=== PATIENT | male | born 1995 | race Caucasian/White ===

== ENCOUNTER 2023-03-16 01:10 | Emergency (ER) | payer BC ==
[2023-03-16 02:21] LABS: Absolute Lymphocytes (CBC) 3.9 K/uL (0.7-4.9); Hematocrit 46.9 % (39.6-49.0); Lymphocytes % 53.3 % (15.3-44.8); MCV 89.6 fL (80-100); MPV 8.3 fL (7.6-11.3); RBC Red Blood Cell Count 5.24 M/uL (4.33-5.43)
[2023-03-16 02:50] LABS: Albumin 4.1 g/dL (3.4-5.0); Bilirubin Direct 0.2 mg/dL (0-0.2); Bilirubin Indirect, Calculated 1.2 mg/dL (0.2-0.8); Bilirubin Total 1.4 mg/dL (0.2-1.0); Magnesium 2.1 mg/dL (1.6-2.4); Potassium 4.2 mEq/L (3.5-5.1); Protein, Total 7.7 g/dL (6.4-8.2); Troponin High Sensitivity 5.9 pg/mL (<58.9)
[2023-03-16] MEDS ORDERED: PANTOPRAZOLE 40 MG INJ ONE (02:50)
--- NOTE | 2023-03-16 03:58 | EDPHYS ---
Physician Documentation [facility] Name: Boby Means Age: 27 yrs Sex: Male : 1995 Arrival Date: 03/16/2023 Time: 01:10 Bed 15 Private MD: ED Physician Arslan Phelan HPI: 03/16 02:38 This 27 yrs old Male presents to ER via Ambulatory with complaints of Chest Pressure, snw Dizziness. 02:38 The patient or guardian reports chest pain that is located primarily in the anterior snw chest wall, left. The pain radiates to. Associated signs and symptoms: Pertinent positives: diaphoresis, dizziness, nausea, Pertinent negatives: shortness of breath. The chest pain is described as a pressure. Duration: The patient or guardian reports multiple episodes, that have now resolved. Modifying factors: The symptoms are alleviated by nothing. the symptoms are aggravated by emotionally stressful situations. Severity of pain: At its worst the pain was moderate. The patient has not experienced similar symptoms in the past, but family has similar symptoms. The patient has not recently seen a physician. +ETOH 2 days ago and then [address] home the next day. Historical: - Allergies: 01:32 PENICILLINS; ll3 - Home Meds: 01:32 Albuterol Inhl [Active]; ll3 - PMHx: 01:32 Asthma; ll3 - PSHx: 01:32 None; ll3 - Immunization history:: Client reports receiving the 2nd dose of the Covid vaccine. - Social history:: Smoking status: Patient reports the use of cigarette tobacco products, denies chronic smoking, but will smoke occasionally, Reported history of juuling and/or vaping. ROS: 02:36 Constitutional: Negative for fever, chills, and weight loss, Eyes: Negative for injury, snw pain, redness, and discharge, ENT: Negative for injury, pain, and discharge, Neck: Negative for injury, pain, and swelling. 02:36 Respiratory: Negative for shortness of breath, cough, wheezing, and pleuritic chest pain. 02:36 Back: Negative for injury and pain, : Negative for injury, bleeding, discharge, and swelling, MS/Extremity: Negative for injury and deformity, Skin: Negative for injury, rash, and discoloration, Neuro: Negative for headache, weakness, numbness, tingling, and seizure, Psych: Negative for depression, anxiety, suicide ideation, homicidal ideation, and hallucinations. 02:36 Cardiovascular: Positive for chest pain, of the anterior aspect of left shoulder and anterior aspect of left upper chest, +nausea, diaphoresis, no SOB. 02:36 Abdomen/GI: Positive for nausea. Exam: 02:36 Head/Face: Normocephalic, atraumatic. Eyes: Pupils equal round and reactive to light, snw extra-ocular motions intact. Lids and lashes normal. Conjunctiva and sclera are non-icteric and not injected. Cornea within normal limits. Periorbital areas with no swelling, redness, or edema. ENT: Nares patent. No nasal discharge, no septal abnormalities noted. Tympanic membranes are normal and external auditory canals are clear. Oropharynx with no redness, swelling, or masses, exudates, or evidence of obstruction, uvula midline. Mucous membranes moist. Neck: Trachea midline, no thyromegaly or masses palpated, and no cervical lymphadenopathy. Supple, full range of motion without nuchal rigidity, or vertebral point tenderness. No Meningismus. Chest/axilla: Normal chest wall appearance and motion. Nontender with no deformity. No lesions are appreciated. Cardiovascular: Regular rate and rhythm with a normal S1 and S2. No gallops, murmurs, or rubs. Normal PMI, no JVD. No pulse deficits. Respiratory: Lungs have equal breath sounds bilaterally, clear to auscultation and percussion. No rales, rhonchi or wheezes noted. No increased work of breathing, no retractions or nasal flaring. Abdomen/GI: Soft, non-tender, with normal bowel sounds. No distension or tympany. No guarding or rebound. No evidence of tenderness throughout. Back: No spinal tenderness. No costovertebral tenderness. Full range of motion. Skin: Warm, dry with normal turgor. Normal color with no rashes, no lesions, and no evidence of cellulitis. MS/ Extremity: Pulses equal, no cyanosis. Neurovascular intact. Full, normal range of motion. Neuro: Awake and alert, GCS 15, oriented to person, place, time, and situation. Cranial nerves II-XII grossly intact. Motor strength 5/5 in all extremities. Sensory grossly intact. Cerebellar exam normal. Normal gait. Psych: Awake, alert, with orientation to person, place and time. Behavior, mood, and affect are within normal limits. 02:36 Constitutional: The patient appears alert, awake, athletic Vital Signs: 01:28 BP 153 / 89; Pulse 46; Resp 16; Temp 98.2(O); Pulse Ox 100% on R/A; Weight 95.25 kg ll3 (R); Height 6 ft. 2 in. (R); Pain 0/10; 02:17 BP 145 / 95; Pulse 47; Resp 12; Temp 98.6; Pulse Ox 98% on R/A; rv1 03:30 BP 150 / 96; Pulse 47; Resp 13; Pulse Ox 97% ; vc1 01:28 Body Mass Index 26.96 (95.25 kg, 187.96 cm) ll3 01:28 Pain Scale: Adult ll3 MDM: 02:17 Patient medically screened. snw 04:01 Differential diagnosis: abnormal EKG, acute pericarditis, anxiety, chest wall pain, snw esophagitis, gastritis, pneumonia. SAAD Risk Score: TOTAL SCORE = 0. Data reviewed: vital signs, nurses notes. I considered the following discharge prescriptions or medication management in the emergency department Medications were administered in the Emergency Department. See MAR. Counseling: I had a detailed discussion with the patient and/or guardian regarding: the historical points, exam findings, and any diagnostic results supporting the discharge/admit diagnosis, the presence of at least one elevated blood pressure reading (>120/80) during this emergency department visit, lab results, radiology results, the need for outpatient follow up, for definitive care, a family practitioner, to return to the emergency department if symptoms worsen or persist or if there are any questions or concerns that arise at home. Response to treatment: the patient's symptoms have markedly improved after treatment. Special discussion: Based on the history and exam findings, there is no indication for further emergent testing or inpatient evaluation. I discussed with the patient/guardian the need to see the primary care provider for further evaluation of the symptoms. 03/16 02:07 Order name: Basic Metabolic Panel; Complete Time: 02:54 snw 03/16 02:07 Order name: CBC with Diff; Complete Time: 02:33 snw 03/16 02:07 Order name: LFT's; Complete Time: 02:54 snw 03/16 02:07 Order name: Magnesium; Complete Time: 02:54 snw 03/16 02:07 Order name: NT PRO-BNP; Complete Time: 02:54 snw 03/16 02:07 Order name: Troponin HS; Complete Time: 02:54 snw 03/16 02:35 Order name: Add On-Lab snw 03/16 02:35 Order name: Add On-Lab snw 03/16 02:38 Order name: Lipid Profile; Complete Time: 02:54 EDMS 03/16 02:38 Order name: Lipase; Complete Time: 02:54 EDMS 03/16 01:38 Order name: Chest Single View XRAY ll3 03/16 02:07 Order name: EKG; Complete Time: 02:08 snw 03/16 01:40 Order name: EKG - Nurse/Tech; Complete Time: 01:40 ll3 03/16 02:07 Order name: Cardiac monitoring; Complete Time: 02:15 snw 03/16 02:07 Order name: EKG - Nurse/Tech; Complete Time: 02:15 snw 03/16 02:07 Order name: IV Saline Lock; Complete Time: 02:15 snw 03/16 02:07 Order name: Labs collected and sent; Complete Time: 02:15 snw 03/16 02:07 Order name: O2 Per Protocol; Complete Time: 02:15 snw 03/16 02:07 Order name: O2 Sat Monitoring; Complete Time: 02:15 snw Administered Medications: 02:46 Drug: Pantoprazole IVP 40 mg Route: IVP; Site: left antecubital; vc1 04:08 Follow up: Response: No adverse reaction; Marked relief of symptoms vc1 Disposition: 20:37 Co-signature as Attending Physician, Arslan Phelan MD I agree with the assessment sp4 and plan of care. I reviewed the patient's care provided by the Advanced Practice Provider and agree with the diagnosis and treatment plan. Disposition Summary: 03/16/23 03:57 Discharge Ordered Location: Home snw Condition: Stable snw Diagnosis - Chest pain, unspecified snw - Elevated Triglycerides snw - Other gastritis without bleeding snw Followup: snw - With: Emergency Department - When: As needed - Reason: Worsening of condition Followup: snw - With: Private Physician - When: 2 - 3 days - Reason: Recheck today's complaints, Continuance of care, Re-evaluation by your physician Discharge Instructions: - Discharge Summary Sheet snw - Nonspecific Chest Pain, Adult snw - Gastritis, Adult snw - How to Take Your Blood Pressure, [id number] snw - Form - Blood Pressure Record Sheet snw - High Triglycerides Eating Plan snw Forms: - Work release form snw - Medication Reconciliation Form snw - Thank You Letter snw - Antibiotic Education snw - Prescription Opioid Use snw - [email or web address] snw Prescriptions: - Pepcid 20 mg Oral Tablet - take 1 tablet by ORAL route once daily; 20 tablet; Refills: 0, Product snw Selection Permitted Signatures: Dispatcher [employer] EDMS Gypsy Gant FNP-C DIRECT MARKETING MANAGER-Csnw Diane Bedoya, RN RN ll3 Shy Machado RN RN vc1 Arslan Phelan MD MD sp4 Corrections: (The following items were deleted from the chart) 02:36 02:08 Chest Single View+RAD.RAD.[email or web address] ordered. EDMS EDMS 02:40 02:38 +ETOH 2 days ago and then [address] home[address] snw snw
--- NOTE | 2023-03-16 03:58 | ER ---
Nurse's Notes [facility] Name: Boby Means Age: 27 yrs Sex: Male : 1995 Arrival Date: 03/16/2023 Time: 01:10 Bed 15 Private MD: Diagnosis: Chest pain, unspecified;Elevated Triglycerides;Other gastritis without bleeding Presentation: 03/16 01:28 Chief complaint: Patient states: C/o chest pain and dizziness since 2330, states pain ll3 is 0/10, states its more of an uncomfortable feeling. Coronavirus screen: Vaccine status: Patient reports receiving the 2nd dose of the covid vaccine. At this time, the client does not indicate any symptoms associated with coronavirus-19. Ebola Screen: No symptoms or risks identified at this time. Initial Sepsis Screen: Does the patient meet any 2 criteria? No. Patient's initial sepsis screen is negative. Does the patient have a suspected source of infection? No. Patient's initial sepsis screen is negative. Risk Assessment: Do you want to hurt yourself or someone else? Patient reports no desire to harm self or others. Onset of symptoms was March 15, 2023 at 23:30. 01:28 Method Of Arrival: Ambulatory ll3 01:28 Acuity: ESTEPHANIA 2 ll3 Triage Assessment: 01:32 General: Appears uncomfortable, Behavior is calm, cooperative. Pain: Complains of pain ll3 in anterior aspect of left upper chest Pain radiates to anterior aspect of left shoulder Pain currently is 0 out of 10 on a pain scale. Pain began 2 hours ago. Is continuous. Cardiovascular: Reports chest pain, lightheadedness, Chest pain is described as vague, is located in left anterior chest wall radiates to left arm(s) neck began 2 hours prior to arrival episodes are continuous. Respiratory: Respiratory effort is even, unlabored, Respiratory pattern is regular, symmetrical. Derm: Skin is pink, warm \T\ dry. Historical: - Allergies: :32 PENICILLINS; ll3 - Home Meds: :32 Albuterol Inhl [Active]; ll3 - PMHx: 01:32 Asthma; ll3 - PSHx: 01:32 None; ll3 - Immunization history:: Client reports receiving the 2nd dose of the Covid vaccine. - Social history:: Smoking status: Patient reports the use of cigarette tobacco products, denies chronic smoking, but will smoke occasionally, Reported history of juuling and/or vaping. Screenin:00 Abuse screen: Denies threats or abuse. Nutritional screening: No deficits noted. vc1 Tuberculosis screening: No symptoms or risk factors identified. 02:00 [facility] ED Fall Risk Assessment (Adult) History of falling in the last 3 months, vc1 including since admission No falls in past 3 months (0 pts) Confusion or Disorientation No (0 pts) Intoxicated or Sedated No (0 pts) Impaired Gait No (0 pts) Mobility Assist Device Used No (0 pt) Altered Elimination No (0 pt) Score/Fall Risk Level 0 - 2 = Low Risk Oriented to surroundings, Maintained a safe environment, Educated pt \T\ family on fall prevention, incl call for assistance when getting out of bed. Assessment: 04:07 Reassessment: Patient and/or family updated on plan of care and expected duration. Pain vc1 level reassessed. Patient is alert, oriented x 3, equal unlabored respirations, skin warm/dry/pink. Patient denies pain at this time. Patient states feeling better. Patient states symptoms have improved. Vital Signs: 01:28 BP 153 / 89; Pulse 46; Resp 16; Temp 98.2(O); Pulse Ox 100% on R/A; Weight 95.25 kg ll3 (R); Height 6 ft. 2 in. (R); Pain 0/10; 02:17 BP 145 / 95; Pulse 47; Resp 12; Temp 98.6; Pulse Ox 98% on R/A; rv1 03:30 BP 150 / 96; Pulse 47; Resp 13; Pulse Ox 97% ; vc1 01:28 Body Mass Index 26.96 (95.25 kg, 187.96 cm) ll3 01:28 Pain Scale: Adult ll3 ED Course: 01:13 Patient arrived in ED. ja2 01:32 Triage completed. ll3 01:32 Arm band placed on Patient placed in waiting room, Patient notified of wait time. EKG ll3 completed in triage. Results shown to MD. 01:35 Patient has correct armband on for positive identification. Bed in low position. Call vc1 light in reach. Client placed on continuous cardiac and pulse oximetry monitoring. NIBP monitoring applied. 02:07 Gypsy Gant FNP-C is PHCP. snw 02:07 Arslan Phelan MD is Attending Physician. snw 02:15 Shy Machado, RN is Primary Nurse. vc1 02:17 Inserted saline lock: 20 gauge in left antecubital area, using aseptic technique. Blood rv1 collected. 02:17 Basic Metabolic Panel Sent. rv1 02:17 CBC with Diff Sent. rv1 02:17 Magnesium Sent. rv1 02:17 LFT's Sent. rv1 02:17 NT PRO-BNP Sent. rv1 02:17 Troponin HS Sent. rv1 02:34 Basic Metabolic Panel Sent. rv1 02:34 LFT's Sent. rv1 02:34 Magnesium Sent. rv1 02:34 NT PRO-BNP Sent. rv1 02:34 Troponin HS Sent. rv1 02:38 Chest Single View XRAY In Process Unspecified. EDMS 04:07 No provider procedures requiring assistance completed. Patient maintains SpO2 vc1 saturation greater than 95% on room air. 04:28 IV discontinued, intact, bleeding controlled, No redness/swelling at site. Pressure vc1 dressing applied. Administered Medications: 02:46 Drug: Pantoprazole IVP 40 mg Route: IVP; Site: left antecubital; vc1 04:08 Follow up: Response: No adverse reaction; Marked relief of symptoms vc1 Medication: 04:08 VIS not applicable for this client. vc1 Outcome: 03:57 Discharge ordered by . snw 04:27 Discharged to home vc1 04:27 Discharged to home ambulatory. 04:27 Condition: good 04:27 Discharge instructions given to patient, Instructed on discharge instructions, follow up and referral plans. medication usage, Demonstrated understanding of instructions, follow-up care, medications, Prescriptions given X 1. 04:28 Patient left the ED. vc1 Signatures: Dispatcher [employer] EDNY Gypsy Gant FNP-C IN FLIGHT CREW MEMBER-Csnw Mela Piña2 Diane Bedoya, RN RN ll3 Shy Machado, PRIYA RN vc1 Raquel Armstrong rv1
[2023-03-16 04:50] VITALS: TEMP 98.2
[2023-03-16 04:52] VITALS: BP 150/96; O2SAT 97
--- NOTE | 2023-03-16 12:27 | EKG ---
Test Date: 2023-03-16 Test Time: 01:26:53 [employer] Consultant: LL MEASUREMENT RESULTS: Intervals: Rate: 51 IA: 186 QRSD: 108 QT: 444 QTc: 409 [place]: P: 60 IA: 186 QRS: 106 T: 55 INTERPRETIVE STATEMENTS: Sinus bradycardia Rightward axis Incomplete right bundle branch block Borderline ECG No previous ECG available for comparison Electronically Signed On 03-16-23 12:27:32 CDT by Shorty Robbins
--- NOTE | 2023-03-17 18:39 | RAD REPORT ---
EXAM DESCRIPTION: RAD - Chest Single View - 03/16/2023 2:36 am CLINICAL HISTORY: 27 years Male CHEST PAIN COMPARISON: None FINDINGS: Lung volumes adequate. Cardiac silhouette is normal in size. No pneumothorax. No large pleural effusion. No focal consolidation. No acute bony finding. IMPRESSION: No acute cardiopulmonary findings. Electronically signed by: Diann Coronado MD 03/16/2023 3:01 AM CDT Due to temporary technical issues with the PACS/Fluency reporting system, reports are being signed by the in house radiologists without review as a courtesy to insure prompt reporting. The interpreting radiologist is fully responsible for the content of the report.
== END 2023-03-16 04:28 | disposition home or self-care (01) ==
LOC: ER 01:10
DX: K29.60 Other gastritis without bleeding (principal); E78.1 Pure hyperglyceridemia; F17.210 Nicotine dependence, cigarettes, uncomplicated; Z88.0 Allergy status to penicillin
CPT/HCPCS: 93005; 85025; 80048; 36415; 83735; 80061; 80076; 84484; 83690; 83880; 71045; 96374; 99285; C9113